=== PATIENT | female | born 2000 | race Caucasian/White ===

== ENCOUNTER 2023-04-24 08:48 | Outpatient (CLI) | payer BC ==
[2023-04-24 10:12] LABS: Hematocrit 39.6 % (34.9-44.5)
[2023-04-24 10:39] LABS: BHCG - Serum Negative (NEGATIVE); Pregs Control Background? CLEAR/WHITE (CLR/WHITE); Pregs Control Bar Appear? YES (CONTROL BAR)
== END 2023-04-24 08:49 | disposition home or self-care (01) ==
LOC: CSHLAB 08:48
PROVIDERS: ATTEND Otolaryngology
DX: Z01.812 Encounter for preprocedural laboratory examination (principal); J35.01 Chronic tonsillitis
CPT/HCPCS: 84703; 85014

== ENCOUNTER 2023-04-30 05:49 | Day surgery (SDC) | payer BC ==
[2023-04-24 09:31] VITALS: BMI 25.8
[2023-04-30] MEDS ORDERED: Oxymetazoline HCl 0.05% ( 15 ML ) ONE (06:30)
[2023-04-30] MEDS ORDERED: fentaNYL 50 mcg/mL 1 mL Vial ONE (06:47)
[2023-04-30] MEDS ORDERED: PROPOFOL 20 ML ONE (06:47)
[2023-04-30] MEDS ORDERED: Dexmedetomidine 200 MCG/2 ML VIAL ONE (06:50)
[2023-04-30] MEDS ORDERED: SUGAMMADEX SODIUM 200 MG/2 ML VIAL ONE (06:50)
[2023-04-30] MEDS ORDERED: Famotidine/PF 20 mg/2ml Vial ONE (06:50)
[2023-04-30] MEDS ORDERED: Lidocaine 1% PF 5 ML VIAL ONE (06:53)
[2023-04-30] MEDS ORDERED: Rocuronium Bromide 10 MG/ML (10ML VIAL) ONE (06:53)
[2023-04-30] MEDS ORDERED: Dexamethasone 20 MG/5 ML VIAL ONE (07:24)
[2023-04-30] MEDS ORDERED: Ondansetron PF 4 MG/2 ML Vial ONE (07:24)
[2023-04-30] MEDS ORDERED: Hydrocodone-Acetamin 15 ML UDCUP ONE (09:06)
== END 2023-04-30 10:05 | disposition home or self-care (01) ==
LOC: CSHSDC 05:49
PROVIDERS: ATTEND Otolaryngology
PROC: 0CBPXZZ Excision of Tonsils, External Approach (ICD-10-PCS; principal; 2023-04-30)
DX: J35.01 Chronic tonsillitis (principal)
CPT/HCPCS: J1100; J2405; J2704; J3010; S0028